=== PATIENT | male | born 1990 | race Caucasian/White ===

== ENCOUNTER 2017-06-04 18:05 | Inpatient (IN) | payer OTHER ==
[~2017-06-04] VITALS: Ht 177.8 cm; Wt 95.3 kg
[2017-06-04 19:28] LABS: *AMPHETAMINE, URINE NEGATIVE (NEGATIVE); *BARBITURATE, URINE NEGATIVE (NEGATIVE); *CANNABINOID, URINE NEGATIVE (NEGATIVE); *COCCAINE, URINE NEGATIVE (NEGATIVE); *OPIATE, URINE NEGATIVE (NEGATIVE); *PHENCYCLIDINE SCREEN,URINE NEGATIVE (NEGATIVE)
[2017-06-04 20:21] VITALS: BP 140/98
[2017-06-04 22:58] LABS: BASOPHILS # (AUTO) 0.1 K/uL (0.0-8.0); BASOPHILS % (AUTO) 0.9 % (0.0-2.0); EOSINOPHILS # (AUTO) 0.1 K/uL (0.0-0.7); EOSINOPHILS % (AUTO) 2.1 % (0.0-7.0); HEMATOCRIT 47.7 % (40-50); HEMOGLOBIN 15.7 G/DL (14.0-18.0); LYMPHOCYTES # (AUTO) 2.7 K/UL (0.8-4.8); LYMPHOCYTES % (AUTO) 45.2 % (20.5-51.5); MEAN CORPUSCULAR HGB CONC 33 g/dL (32.0-37.0); MONOCYTES # (AUTO) 0.5 K/UL (0.1-1.30); MONOCYTES % (AUTO) 8.6 % (0.0-11.0); NEUTROPHILS # (AUTO) 2.6 K/UL (1.8-8.9); NEUTROPHILS % (AUTO) 43.2 % (38.5-71.5); PLATELET COUNT (AUTO) 213 K/UL (150-450); RED BLOOD CELL COUNT(AUTO) 5.24 MIL/UL (4.7-6.1)
[2017-06-04 23:20] LABS: ALANINE AMINOTRANSFERASE 41 U/L (16-63); ALKALINE PHOSPHATASE 88 U/L (50-136); ASPARTATE AMINOTRANSFERASE 21 U/L (15-37); BILIRUBIN,TOTAL 0.3 mg/dL (0.2-1.0); CARBON DIOXIDE 32 mmol/L (21-32); CHLORIDE 104 mmol/L (98-107); CREATININE 1.2 mg/dL (0.6-1.3); GLUCOSE 127 mg/dL (74-106); MAGNESIUM 1.9 mg/dL (1.8-2.4); POTASSIUM 4.3 mmol/L (3.5-5.1); TOTAL PROTEIN, SERUM 7.3 g/dL (6.4-8.2); UREA NITROGEN, BLOOD 9 mg/dL (7-18)
[2017-06-04 23:31] LABS: ETHANOL < 3 MG/DL (0-0)
[2017-06-05] VITALS (7 sets, daily range): BP systolic 128–148; BP diastolic 70–106
[2017-06-05] MEDS ORDERED: [UNRECOGNIZED DRUG - CODE] PO (00:21)
[2017-06-05] MEDS ORDERED: [UNRECOGNIZED DRUG - CODE] MM (00:21)
[2017-06-05] MEDS ORDERED: ACET-73 PO (00:21)
[2017-06-05] MEDS ORDERED: TETR-62 OP (00:21)
[2017-06-05] MEDS ORDERED: VENL150C58 PO (00:21)
[2017-06-05] MEDS ORDERED: CETI-194 PO (00:21)
[2017-06-05] MEDS ORDERED: [UNRECOGNIZED DRUG - CODE] PO (00:21)
[2017-06-05] MEDS ORDERED: TRAZ-147 PO (00:21)
[2017-06-05] MEDS ORDERED: [UNRECOGNIZED DRUG - REMARK] (00:21)
[2017-06-06] VITALS: BP 131/77
[2017-06-06 04:00] VITALS: BP 118/84
[2017-06-06 04:07] LABS: HEPATITIS B SURFACE AG Negative (Negative)
[2017-06-06 08:00] VITALS: BP 140/88
[2017-06-06 12:00] VITALS: BP 133/100
[2017-06-06 16:00] VITALS: BP 144/100
[2017-06-06 20:00] VITALS: BP 135/98
[2017-06-07] VITALS: BP 88/58
[2017-06-07 04:00] VITALS: BP 129/89
[2017-06-07 08:00] VITALS: BP 136/82
[2017-06-07 12:00] VITALS: BP 146/105
[2017-06-07 16:00] VITALS: BP 138/94
[2017-06-07 20:04] VITALS: BP 140/101
[2017-06-08 08:00] VITALS: BP 123/76
[2017-06-08 12:00] VITALS: BP 138/98
[2017-06-08 16:00] VITALS: BP 133/94
[2017-06-08] MEDS ORDERED: ACYC400T PO (17:34)
[2017-06-08] MEDS ORDERED: HYDR-3895 PO (17:34)
[2017-06-08] MEDS ORDERED: IBUP-1953 PO (17:34)
[2017-06-08] MEDS ORDERED: CLON0.1T14 PO (17:34)
[2017-06-08 20:00] VITALS: BP 149/107
[2017-06-09 08:51] VITALS: BP 123/89
== END 2017-06-09 09:32 | disposition other institution (70) | DRG 895 ==
LOC: SRC 18:26
PROVIDERS: ADMIT Internal Medicine; ATTEND Internal Medicine
PROC: HZ2ZZZZ Detoxification Services for Substance Abuse Treatment (ICD-10-PCS; principal; 2017-06-04)
PROC: HZ41ZZZ Group Counseling for Substance Abuse Treatment, Behavioral (ICD-10-PCS; 2017-06-05)
PROC: HZ31ZZZ Individual Counseling for Substance Abuse Treatment, Behavioral (ICD-10-PCS; 2017-06-07)
DX: F10.230 Alcohol dependence with withdrawal, uncomplicated (principal); F33.1 Major depressive disorder, recurrent, moderate; I15.9 Secondary hypertension, unspecified; F13.230 Sedative, hypnotic or anxiolytic dependence with withdrawal, uncomplicated; Y90.9 Presence of alcohol in blood, level not specified; F41.9 Anxiety disorder, unspecified; Z83.3 Family history of diabetes mellitus; Z82.49 Family history of ischemic heart disease and other diseases of the circulatory system; F17.290 Nicotine dependence, other tobacco product, uncomplicated; G47.00 Insomnia, unspecified; A60.1 Herpesviral infection of perianal skin and rectum; R73.9 Hyperglycemia, unspecified
CPT/HCPCS: 36415; 70030-TC; 80307; 80346; 83735; 85025; 86580; 86592; 86705; 86803; 87340; 87806; A4663; G0480; J3411